=== PATIENT | male | born 1945 | race Caucasian/White ===

== ENCOUNTER 2018-04-17 10:31 | Inpatient (IN) | payer MEDICARE ==
[2018-04-17 11:49] LABS: CK (CPK) 93 U/L (30-200); Lipase 14 U/L (8-78)
[2018-04-17 11:54] LABS: CKMB 1.5 ng/mL (0-6.6); Troponin I Less than 0.010 ng/mL (< 0.028)
[2018-04-17 11:59] LABS: Bilirubin Negative (Negative); Blood, Urine Negative (Negative); Clarity CLEAR (Clear); Glucose, Urine (Dipstick) Negative (Negative); Leukocyte Negative (Negative); Nitrite Negative (Negative); Protein, Urine (Dipstick) Negative (Neg-Trace); Specific Gravity, Urine 1.019 (1.002-1.036); Urobilinogen 0.2 mg/dL (0.2-1.0); pH, Urine 5.5 (5.0-9.0)
[2018-04-17] MEDS ORDERED: Iopamidol 370 76% 50 ML VIAL FS ONE (12:14)
[2018-04-17] MEDS ORDERED: ISOVUE-370 76%-LOCM 1 ML ONE (12:14)
[2018-04-17] MEDS ORDERED: Acetaminophen 325 MG TAB PO PRN (14:56)
[2018-04-17] MEDS ORDERED: Ondansetron HCl/PF 4 MG/2 ML Vial IVP PRN ×2 (14:56→15:37)
[2018-04-17] MEDS ORDERED: Zolpidem Tartrate 5 MG TAB PO PRN (14:56)
[2018-04-17] MEDS ORDERED: Sodium Chloride 0.9% 1,000 ML IV SCH (15:00)
[2018-04-17] MEDS ORDERED: Dextrose 50% Abboject 50 ML SYRINGE SLOW IVP PRN ×2 (15:05→15:37)
[2018-04-17] MEDS ORDERED: Dextrose 5% in Water 1,000 ML IV PRN ×2 (15:05→15:37)
[2018-04-17] MEDS ORDERED: HumaLOG 300 UNITS/3 ML VIAL SC PRN ×2 (15:05→15:37)
--- NOTE | 2018-04-17 15:06 | HP ---
CHIEF COMPLAINT: Abdominal pain, distention, nausea, vomiting. HISTORY OF PRESENT ILLNESS: This is a 72-year-old male who presents with a history of chronic back p ain. Has had multiple back operations, recently switched from [place] to oral morphine for his back pa in. He has not had a bowel movement since last which happened on Thursday. Since then he has had prog ressive development of nausea and became vomiting, still has not had a bowel movement, does not feel like he has a bowel movement, but he notes more abdominal bloating. No significant increase in abdom inal pain, just feels distended. He actually feels better after some IV fluids at the hospital. PAST MEDICAL HISTORY: Includes diabetes mellitus, hypertension, hyperlipidemia, GERD, chronic back p ain. PAST SURGICAL HISTORY: Inguinal hernia repair, multiple back surgeries, knee surgery. ALLERGIES: No known drug allergies. MEDICINES AT HOME: Include Benicar, enalapril, atenolol, metformin, oral morphine. SOCIAL HISTORY: No smoking, alcohol or other drugs. REVIEW OF SYSTEMS: Ten system review of systems otherwise negative described above. PHYSICAL EXAMINATION: VITAL SIGNS: His pulse is 63, blood pressure is 130/78, respirations are 14. He is afebrile. HEENT: Sclerae are anicteric. Oropharynx clear. NECK: No lymphadenopathy. CHEST: Clear. HEART: Regular rate and rhythm. ABDOMEN: Distended. Mild diffusely tender. No guarding or rebound. No abdominal hernia. EXTREMITIES: No ischemia or edema to extremities. IMAGING DATA AND LABORATORY DATA: CT scan shows evidence of small area of dilated intestine. No sig nificant distention. LABORATORY DATA: White blood cell count is 13, hemoglobin 15, platelet count is 294. Sodium 140, po tassium 3.8, creatinine 0.97. Liver function tests and lipase normal. ASSESSMENT: Likely ileus versus partial small-bowel obstruction. I think partial small-bowel obstru ction is less likely given his lack of previous abdominal surgery. This could all be related to func tional issues of the intestine and colon from this up taking pain medicine to morphine. We will admi t to the hospital, give him some magnesium citrate. I do not think he needs NG tube. He feels thor r now. Home tomorrow if he is feeling better. Consult [facility] for medical management.
--- NOTE | 2018-04-17 15:11 | PDOC.EVN ---
Event Note - Event Note Event Note: H&P #[id number]
[2018-04-17] MEDS ORDERED: Morphine 4 MG/ML VIAL SLOW IVP PRN (15:37)
[2018-04-17] MEDS ORDERED: Ondansetron ODT 4 MG TAB PO PRN (15:37)
[2018-04-17] MEDS ORDERED: Promethazine HCl 25 MG/ML VIAL IM PRN (15:37)
[2018-04-17] MEDS ORDERED: Acetaminophen 1,000 MG in Premix Bag 1 BAG IVPB PRN (15:37)
--- NOTE | 2018-04-17 15:45 | CT ---
CT ABDOMEN WITH CONTRAST CT PELVIS WITH CONTRAST: DATE: 04/17/18 HISTORY: 72-year-old male with nausea, emesis, and generalized abdominal pain. COMPARISON: 09/10/16. TECHNIQUE: IV injection of iodinated contrast media: 100 mL Isovue-370. Oral contrast media: PO Isovue. FINDINGS: Pulmonary scar a base of right middle lobe, unchanged. Small pulmonary densities at anterolateral bas e of left lower lobe demonstrated previously, has resolved. No pneumoperitoneum. Metallic hardware in upper sacrum and multiple levels in lumbar spine, again dem onstrated. No hydronephrosis, abdominal aortic aneurysm, adrenal nodule, acute pancreatitis, pancreat ic mass, or splenomegaly. Normal liver. Previously, there were fluid-filled dilated small bowel loops in the left upper quadrant. Currently, there are oral contrast-filled jejunal loops at midline and o n the right and left, in the upper abdomen, with caliber up to 3.5 cm, mildly dilated. Distal to this , there are nondilated small bowel loops. There is a transition zone in the caliber of the small inte andrew from dilated jejunum filled with oral contrast material to nondilated small bowel loop without oral contrast material, in the left mid abdomen (coronal image 63 of 189, series 601; axial images 46 and 47 of 100, series 2). It is uncertain whether or not this is a low grade partial small bowel obs truction or not. No signs of acute colonic diverticulitis. No pneumoperitoneum. Fluid within the lume n of the ascending colon and proximal transverse colon. Normal appendix in the right upper quadrant e xtending towards Morison's pouch. No abdominal aortic aneurysm. No retroperitoneal hematoma. No ascit es. Distended but otherwise normal urinary bladder. No pleural effusion. IMPRESSION: 1. Mildly dilated proximal small bowel (jejunum). Uncertain whether or not this represents a low gra de partial small bowel obstruction. 2. Postsurgical changes in the lumbar spine and lumbosacral junction. JNR POS: [facility]
[2018-04-17] MEDS ORDERED: Magnesium Citrate 300 ML BOT PO SCH (16:00)
[2018-04-17] MEDS: Sodium Chloride 0.9% 1,000 ML IV SCH ×2 (16:05→20:36)
[2018-04-17 16:10] VITALS: BMI 29.1
[2018-04-17] MEDS: Morphine 4 MG/ML VIAL SLOW IVP PRN (17:25)
[2018-04-17] MEDS ORDERED: Milk Of Magnesia 30 ML UDCUP PO SCH (17:30)
--- NOTE | 2018-04-17 18:22 | HP ---
DATE OF ADMISSION: 04/17/2018 CHIEF COMPLAINT: Abdominal pain. HISTORY OF PRESENT ILLNESS: This is a 72-year-old male being admitted to the Internal Medicine team after having proper evaluation by ER as well as General Surgery. The patient apparently presented fo r abdominal distention, abdominal pain. Of note, the patient has been taking narcotic pain medicatio ns in the past 2 years due to back pain. 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 nonnarcotic pain medication regimen was attempted and failed and he was switched over to [place]. Again, of note, he was recently switched to oral morphine that he was taking twice a day. Th e patient prior to evaluation by Internal Medicine was seen by ER. CT scan was done noted to have a possible small-bowel obstruction, evaluated by General Surgery as well noted to have a slow bowels; h owever NG tube not place at this point in time given that the patient is still passing gas and abdome n is soft. The patient told me that he is passing flatus and pass gas this morning and that his hema l movement was earlier this morning; however, had told General Surgery that he has not had a bowel mo vement since Thursday. Otherwise, the patient denies any other complaints. No associated or aggravati ng factors. No other associated symptoms. States that this is the first time that he experiences. ALLERGIES: No known drug allergies. HOME MEDICATIONS: [place], Lortab, metformin, Flagyl, Zofran, Tylenol, enalapril, magnesium, Glucotrol , Benicar and Cipro. Two antibiotics were recently started and he also has completed the course. PAST MEDICAL HISTORY: Positive for back pain, hypertension, hyperlipidemia. FAMILY HISTORY: The patient states he is not aware of any family history. REVIEW OF SYSTEMS: All systems reviewed. Pertinent positives in the HPI, otherwise negative. PHYSICAL EXAMINATION: VITAL SIGNS: Blood pressure is 118/88, respiratory rate of 18, temperature of 98, pulse ox 99% on ro om air, heart rate of 76. GENERAL: The patient is lying in bed comfortably, in no acute distress. NECK: No lymphadenopathy. HEENT: Normocephalic, atraumatic. Pupils are equal, round, react to light and accommodation. CARDIOVASCULAR: Regular rate and rhythm. S1 and S2. No murmurs, rubs or gallops appreciated. PULMONARY: Aerating well. No increase in AP diameter. Clear to auscultation bilaterally. No rales , wheezing or rhonchi noted. ABDOMEN: Positive bowel sounds, soft, nontender, no rebound or guarding noted, abdominal bowel sound s appreciated, high pitch sounds noted. EXTREMITIES: 2+ peripheral pulses in all extremities. No cyanosis, clubbing or edema noted. NEUROLOGIC: Cranial nerves II-XII intact. No loss of motor or sensory function. SKIN: Normal turgor. No rash noted. LABORATORY DATA: CBC within normal limits. BMP within normal limits. UA within normal limits. ASSESSMENT: 1. Small bowel movement/partial small bowel movement. 2. Diabetes mellitus, type 2. 3. Hypertension. 4. Hyperlipidemia. PLAN: Admit to medical floor. Surgical evaluation completed. We will give the patient mag citrate. Repeat KUB in the morning. We will start the patient on low dose sliding scale. Continue glipizid e, but hold metformin for now. Continue home blood pressure medications. P.r.n. for pain meds. P.r .n. for fevers and nausea as well. GI and DVT prophylaxis. The patient wishes to remain a FULL CODE . Case and plan discussed with the patient and who was at bedside at length. They understand a nd agree with this plan.
[2018-04-17] MEDS: Atenolol 50 MG TAB PO SCH (20:34)
[2018-04-17] MEDS ORDERED: Enoxaparin Sodium 40 MG/0.4 ML SYRINGE SC SCH (21:00)
[2018-04-18] MEDS: Sodium Chloride 0.9% 1,000 ML IV SCH ×2 (02:25→10:15)
[2018-04-18] MEDS: Morphine 4 MG/ML VIAL SLOW IVP PRN ×3 (02:26→14:03)
[2018-04-18 05:35] LABS: #Eosinphils 0.3 thou/uL (0.0-0.7); #Lymphocytes 1.9 thou/uL (1.20-3.40); #Monocytes 0.7 thou/uL (0.11-0.59); #Neutrophils 3.9 thou/uL (1.40-6.50); %Basophils 0.1 % (0.0-1.0); %Eosinophils 4.3 % (0.0-10.0); %Lymphocytes 27.8 % (21.0-51.0); %Monocytes 10.3 % (0.0-10.0); %Neutrophils 57.5 % (42.0-75.0); Hemoglobin 12.2 g/dL (14.0-18.0); Mean Corpuscular HGB CONC 33.1 g/dL (32.0-36.0); Mean Corpuscular Hemoglobin 31.1 pg (27.0-31.0); Mean Corpuscular Volume 93.8 fl (80.0-94.0); Mean Platelet Volume 6.3 fL (7.4-10.4); Platelet Count 215 thou/uL (130-400); RBC Distribution Width 11.6 % (11.5-14.5); Red Blood Cell (RBC) Count 3.94 mill/uL (4.70-6.10); White Blood Cell (WBC) Count 6.9 thou/uL (4.8-10.8)
[2018-04-18 05:46] LABS: Anion Gap 6 mmol/L (10-20); BUN (Urea Nitrogen) 9 mg/dL (8.4-25.7); Calc. Creatinine Clearance 119 mL/min (70-130); Calcium 8.3 mg/dL (7.8-10.44); Carbon Dioxide 31 mmol/L (23-31); Chloride 108 mmol/L (98-107); Estimated GFR-MDRD Greater than 90; Glucose 97 mg/dL (83-110); Potassium 3.9 mmol/L (3.5-5.1); Sodium 141 mmol/L (136-145)
[2018-04-18] MEDS ORDERED: glipiZIDE 10 MG TAB PO SCH (07:30)
[2018-04-18] MEDS ORDERED: Hydrochlorothiazide 25 MG TAB PO SCH (09:00)
[2018-04-18] MEDS ORDERED: Non-Formulary Item 1 EACH (Olmesartan/Hydrochlorothiazide [Benicar Hct] 1 TABLET) PO SCH (09:00)
[2018-04-18] MEDS ORDERED: Pantoprazole 40 MG VIAL IVP SCH (09:00)
[2018-04-18] MEDS ORDERED: Enoxaparin Sodium 40 MG/0.4 ML SYRINGE SC SCH (09:00)
--- NOTE | 2018-04-18 09:04 | RAD ---
KUB: Date: 04/18/18 HISTORY: Abdominal pain, small bowel obstruction. COMPARISON: Prior day's CT study. FINDINGS: The bowel gas pattern appears nonobstructive; however, this may be related to the fact that some of t he small bowel loops may be fluid-filled given the appearance on the previous CT. The contrast from t he previous CT has now passed entirely into the colon. Extensive postoperative changes of the spine a re noted. IMPRESSION: Paucity of air seen within small bowel. I do not see any air-filled dilated small bowel loops. It cou ld be that some of the small bowel loops are fluid-filled and dilated, but all of the oral contrast f rom the previous CT examination has passed into the colon. POS: [facility]
[2018-04-18] MEDS: Atenolol 50 MG TAB PO SCH (10:08)
--- NOTE | 2018-04-18 10:29 | PDOC.PN ---
- Subjective Encounter Start Date: 04/18/18 Encounter Start Time: 10:28 Patient seen and examined, states he has had several bowel movements which are liquid and pasty in nature, states that he still has abdominal pain and has also noted some nausea. Patient states he has not had any vomitting, at bedside, all questions answered. - Objective Vital Signs & Weight: Vital Signs (12 hours) Temp Pulse Resp BP BP Pulse Ox 04/18/18 10:08 58 L 125/79 04/18/18 08:00 98.0 F 58 L 18 125/79 93 L 04/18/18 06:02 98.2 F 58 L 18 106/65 94 L I&O: 04/17/18 04/18/18 04/19/18 06:59 06:59 06:59 Intake Total 1860 Balance 1860 Result Diagrams: 04/18/18 05:08 04/18/18 05:08 Additional Labs: Accuchecks 04/18/18 04/17/18 04/17/18 06:03 20:33 16:28 POC Glucose 95 117 H 94 Phys Exam - Physical Examination Constitutional: NAD HEENT: PERRLA, moist MMs, sclera anicteric Neck: no nodes, no JVD, supple, full ROM Respiratory: no wheezing, no rales, no rhonchi Cardiovascular: RRR, no significant murmur, no rub Gastrointestinal: soft, non-tender, no distention tympanic bowel sounds Musculoskeletal: no edema, pulses present Neurological: non-focal, normal sensation, moves all 4 limbs Psychiatric: normal affect, A&O x 3 Skin: no rash, normal turgor Dx/Plan (1) SBO (small bowel obstruction) Code(s): K56.609 - UNSP INTESTNL OBST, UNSP TO PARTIAL VERSUS COMPLETE OBST Status: Acute (2) Hypertension Code(s): I10 - ESSENTIAL (PRIMARY) HYPERTENSION Status: Acute (3) DM type 2 (diabetes mellitus, type 2) Status: Chronic (4) Dyslipidemia Code(s): E78.5 - HYPERLIPIDEMIA, UNSPECIFIED Status: Chronic - Plan * advance diet today to diabetic diet * will monitor for now as patient's BMs are abnormal * labs in AM * repeat KUB as well * surgery following * case and plan d/w patient and at length, they udnerstand and agree with this plan
--- NOTE | 2018-04-18 14:08 | DIS ---
DATE OF ADMISSION: 04/17/2018 DATE OF DISCHARGE: 04/18/2018 ADMISSION DIAGNOSES: Hypertension; coronary artery disease; chronic back pain; gastrointestinal refl ux disease; diabetes mellitus, type 2; functional ileus of intestine secondary to pain medicine. DISCHARGE DIAGNOSES: Hypertension; coronary artery disease; chronic back pain; gastrointestinal refl ux disease; diabetes mellitus, type 2; functional ileus of intestine secondary to pain medicine. PROCEDURES: None. CONDITION AT DISCHARGE: Improved. STAFF: Dr. Jose Hanson. HOSPITAL COURSE: The patient was admitted with nausea, vomiting, abdominal distention. A CT scan sh owed no significant obstruction. He had just started some morphine late last week when symptoms bega n, not on any stool softeners. On the day of discharge, he is afebrile. Vital signs are stable. Hi s abdomen is soft, nontender with active bowel sounds. He has tolerated a full liquid diet. He has had multiple bowel movements since given milk of magnesia. White cell count is normal, hemoglobin is slightly low at 12.2, creatinine 0.72. ASSESSMENT: 1. Functional ileus, resolved. 2. History of chronic pain. PLAN: Discharged to home. We will make sure he is up-to-date on colonoscopies.
[2018-04-18 15:47] VITALS: BP 124/79; TEMP 98.2
[2018-04-18] MEDS ORDERED: Morphine ER 30 MG TAB PO SCH (21:00)
[2018-04-19] MEDS ORDERED: Amlodipine 5 MG TAB PO SCH (09:00)
== END 2018-04-18 15:44 | disposition home or self-care (01) | DRG 390 ==
LOC: ERS 10:31 → T4-B 15:17
PROVIDERS: ADMIT Hospitalist; ATTEND Hospitalist
DX: K56.7 Ileus, unspecified (principal); I10 Essential (primary) hypertension; E11.9 Type 2 diabetes mellitus without complications; E78.5 Hyperlipidemia, unspecified; G89.29 Other chronic pain; M54.9 Dorsalgia, unspecified; K21.9 Gastro-esophageal reflux disease without esophagitis; I25.10 Atherosclerotic heart disease of native coronary artery without angina pectoris; T40.2X5A Adverse effect of other opioids, initial encounter
CPT/HCPCS: 36415; 36416; 74018; 74177; 80048; 81003; 82550; 82553; 83605; 83690; 84484; 85025; 93005; 96360; 96361; C9113; J2270

== ENCOUNTER 2018-05-01 21:14 | Observation (INO) | payer MEDICARE ==
[~2018-05-01 21:14] MED LIST: ISOVUE-370 76%-LOCM 1 ML ONE
[2018-05-01] MEDS ORDERED: Naloxone HCl 0.4 mg/ml Vial ONE (21:30)
[2018-05-01 21:31] LABS: #Lymphocytes 0.5 thou/uL (1.20-3.40); #Monocytes 0.5 thou/uL (0.11-0.59); #Neutrophils 6.7 thou/uL (1.40-6.50); %Basophils 0.6 % (0.0-1.0); %Eosinophils 0.2 % (0.0-10.0); %Lymphocytes 5.8 % (21.0-51.0); %Monocytes 6.2 % (0.0-10.0); %Neutrophils 87.2 % (42.0-75.0); Hemoglobin 13.1 g/dL (14.0-18.0); Mean Corpuscular HGB CONC 34.2 g/dL (32.0-36.0); Mean Corpuscular Hemoglobin 31.6 pg (27.0-31.0); Mean Corpuscular Volume 92.4 fl (80.0-94.0); Mean Platelet Volume 5.9 fL (7.4-10.4); Platelet Count 186 thou/uL (130-400); RBC Distribution Width 11.8 % (11.5-14.5); Red Blood Cell (RBC) Count 4.16 mill/uL (4.70-6.10); White Blood Cell (WBC) Count 7.7 thou/uL (4.8-10.8)
[2018-05-01 21:36] LABS: INR-International Normal Ratio 1.1; PTT 31.8 SEC (22.9-36.1); Prothrombin Time 14.4 SEC (12.0-14.7)
[2018-05-01 21:45] LABS: ALT (SGPT) 64 U/L (8-55); AST (SGOT) 30 U/L (5-34); Albumin 3.6 g/dL (3.4-4.8); Alkaline Phosphatase 83 U/L (40-150); Anion Gap 11 mmol/L (10-20); BUN (Urea Nitrogen) 14 mg/dL (8.4-25.7); Bilirubin, Total 0.5 mg/dL (0.2-1.2); CK (CPK) 27 U/L (30-200); Calc. Creatinine Clearance 0 mL/min (70-130); Calcium 8.6 mg/dL (7.8-10.44); Carbon Dioxide 27 mmol/L (23-31); Chloride 102 mmol/L (98-107); Estimated GFR-MDRD Greater than 90; Globulin 2.9 g/dL (2.4-3.5); Glucose 160 mg/dL (83-110); Potassium 3.5 mmol/L (3.5-5.1); Protein, Total 6.5 g/dL (5.8-8.1); Sodium 136 mmol/L (136-145)
[2018-05-01 21:48] LABS: CKMB 0.2 ng/mL (0-6.6); Troponin I Less than 0.010 ng/mL (< 0.028)
--- NOTE | 2018-05-01 21:48 | CT ---
CT HEAD WITHOUT CONTRAST: 05/01/18 Multiple axial tomograms obtained through the head without IV enhancement. INDICATIONS: Stroke protocol. Weakness in upper extremity, more so on the right with mental status change. No comparison studies. Mild cortical atrophy. Ventricles have normal size and position. No evidence of hemorrhage. No mass e ffect seen in either cerebral hemisphere. At the base of the brain, just to the right of the cavernou s sinus is a soft tissue prominence measuring approximately 1.3 cm. Isodense mass at this location ca nnot be excluded. Suggest this be evaluated with elective MRI. The sinuses and mastoids are clear. IMPRESSION: 1. No evidence of acute infarct. No evidence of hemorrhage. 2. Questioned isodense mass adjacent to the right cavernous sinus extending into the right middl e temporal fossa. Recommend further evaluation with elective MRI. Findings relayed to Dr. Petersen at 9:37 p.m. POS: [facility]
--- NOTE | 2018-05-01 22:14 | CT ---
CT ANGIO HEAD WITH CONTRAST: 05/01/18 Multiple axial tomograms obtained through the head following a cerebral angio protocol with multiplan ar reconstruction and 3D postprocessing. INDICATIONS: Stroke protocol with right side weakness. FINDINGS: The intracranial internal carotid arteries are patent and appears symmetric. The questioned soft tiss ue prominence to the right of the right cavernous sinus on the noncontrast study represents a tortuou s cavernous internal carotid artery. Middle cerebral arteries appear normal and symmetric. Anterior cerebral arteries are patent. There is a single anterior cerebral artery trunk beyond the anterior communicator. The basilar artery is patent. Posterior cerebral arteries are patent. There is a communication to the right posterior cerebra. IMPRESSION: Unremarkable cerebral angio study. CT ANGIO NECK: Multiple axial tomograms obtained through the neck following angio protocol with multiplanar reconstr uctions and 3D postprocessing. INDICATIONS: Stroke protocol. FINDINGS: There is no evidence of stenosis at the origin of the arch vessels. Common carotid arteries appear un remarkable bilaterally. Calcified plaque is seen at both carotid bifurcations and extending into both internal carotid arteri es; however, there is no evidence of internal carotid artery stenosis on either side. The vertebral arteries are patent and symmetric. Images through the lung apices reveals a 1.3 cm nodule in the right lung apex. Further evaluation wi th elective chest CT is recommended. Thyroid is enlarged and heterogeneous. No other soft tissue abnormality. Prominent degenerative changes in the cervical spine especially pronounced at C5-6 with disc space na rrowing and posterior hypertrophic changes encroaching into the spinal canal. IMPRESSION: 1. Mild atherosclerotic changes at both carotid bulbs; however, no evidence of internal carotid artery stenosis. 2. Nodule in the right lung apex. Further evaluation with noncontrast chest CT recommended elect ively. 3. Enlarged heterogeneous thyroid gland. Code LN POS: [facility]
[2018-05-01 22:26] LABS: Bilirubin Negative (Negative); Blood, Urine Negative (Negative); Clarity CLEAR (Clear); Glucose, Urine (Dipstick) Negative (Negative); Leukocyte Negative (Negative); Nitrite Negative (Negative); Protein, Urine (Dipstick) Trace mg/dL (Neg-Trace)
[2018-05-01 22:29] LABS: Specific Gravity, Urine 1.043 (1.002-1.036)
--- NOTE | 2018-05-01 22:56 | RAD ---
PORTABLE CHEST: 05/01/18 HISTORY: Weakness. The lung ramos appear clear. No infiltrate or vascular congestion. Heart size is upper normal. IMPRESSION: No acute lung process. POS: [facility]
--- NOTE | 2018-05-02 00:19 | PDOC.FPRHP ---
- History of Present Illness Chief Complaint: AMS History of Present Illness: 72 y/o M with PMHx of chronic back pain, HTN, HLD, DM2 who presents with AMS. The history was obtained by his due to his mental status changes. She reports that around 5pm he was complaining of really bad back pain and asked for his pain medication. She asked him if he had already taken his norco and he said that a little bit before he had taken 1.5 tablets of the norco. She is unsure at that point whether he went to get more of the norco or other pain medications or not. When he woke up later, he was not acting like himself. He was really out of it and weak. He was unable to get to the bathroom by himself. He couldn't walk at all. She took his temperature because he was shivering and it was 100.3. She also checked his blood sugar and it was 170. He follows with pain management for his chronic back pain, he has seen both Dr. Covington and Dr. Correa. They have been trying to wean him off of opioids recently. He had been on Hysingla 60mg, but then they changed it to Morphine ER 30mg BID when he got an SBO, and then more recently on April 27 he was decreased to [place] 10-325mg 1 tab q8h. He has been in a lot of pain since this decrease and has an appt coming up this next week with Dr. Correa. His reports that they still have extras of both the Morphine and Hysingla at the house. ED Course: The patient was evaluated in the ED by Dr. Petersen and was given Narcan 0.4mg IV. The patient's AMS resolved after this dose. - Allergies/Adverse Reactions Allergies Allergy/AdvReac Type Severity Reaction Status Date / Time No Known Allergies Allergy Verified 01/27/15 15:11 - Home Medications Medication Instructions Recorded Confirmed Type Atenolol 50 mg PO BID 09/21/14 05/02/18 History Esomeprazole Magnesium [NexIUM] 40 mg PO DAILY 09/21/14 05/02/18 History metFORMIN HCl 500 mg PO BID 09/21/14 05/02/18 History Olmesartan Medoxomil [Benicar] 25 mg PO DAILY 04/17/18 05/02/18 History Amlodipine [Norvasc] 5 mg PO DAILY 04/18/18 05/02/18 History HYDROcodone Bit/APAP 10/325 [[place] 1 tab PO Q8HR PRN 05/02/18 05/02/18 History 10/325] Pitavastatin Calcium [Livalo] 1 mg PO HS 05/02/18 05/02/18 History Tamsulosin HCl [Flomax] 0.4 mg PO DAILY 05/02/18 05/02/18 History - History PMHx: 1. HTN 2. HLD 3. DM2 4. Chronic Back Pain 5. GERD 6. BPH PSHx: 1. Inguinal Hernia Repair 2. Multiple Back sx 3. Knee sx 4. Neck sx FHx: DM2 Social: The patient is . Denies EtOH, drug, or tobacco use. - Review of Systems ROS unobtainable: due to mental status - Vital signs BP: 112/77 HR: 74 RR: 13 Tmax: 102.8 Pox: 95% on RA Wt: 93.8kg - Physical Exam -Constitutional: Drowsy, oriented x3, fell asleep between questions, shivering on exam, diaphoretic -HEENT: pinpoint pupils, EOMI, MMM, good dentition, oropharynx clear, conjunctiva clear Neck: supple, no LAD Heart: RRR, normal S1/S2, no murmurs/rubs/gallops, pulses present, no edema Lungs: CTAB, no respiratory distress, good air movement, no rales/rhonchi, no wheezing, no retractions -Abdomen: soft, mildly distended, mildly tender to palpation diffusely, normoactive bowel sounds, no guarding or rebound Musculoskeletal: normal structure, normal tone -Neurological: GCS 13, no focal deficits, CN II-XII intact Skin: no rash/lesions, good turgor, capillary refill <2 seconds Heme/Lymphatic: no unusual bruising or bleeding, no purpura -Psychiatric: poor recent memory and recall. FMR H&P: Results - Labs Result Diagrams: 05/01/18 21:26 05/01/18 21:26 Lab results: WBC 7.7 thou/uL (4.8-10.8) 05/01/18 21:26 Hgb 13.1 g/dL (14.0-18.0) L 05/01/18 21:26 Hct 38.4 % (42.0-52.0) L 05/01/18 21:26 MCV 92.4 fl (80.0-94.0) 05/01/18 21:26 Plt Count 186 thou/uL (130-400) 05/01/18 21:26 Neutrophils % 87.2 % (42.0-75.0) H 05/01/18 21:26 Sodium 136 mmol/L (136-145) 05/01/18 21:26 Potassium 3.5 mmol/L (3.5-5.1) 05/01/18 21:26 Chloride 102 mmol/L (98-107) 05/01/18 21:26 Carbon Dioxide 27 mmol/L (23-31) 05/01/18 21:26 BUN 14 mg/dL (8.4-25.7) 05/01/18 21:26 Creatinine 0.83 mg/dL (0.6-1.3) 05/01/18 21:26 Glucose 160 mg/dL (83-110) H 05/01/18 21:26 Calcium 8.6 mg/dL (7.8-10.44) 05/01/18 21:26 Total Bilirubin 0.5 mg/dL (0.2-1.2) 05/01/18 21:26 AST 30 U/L (5-34) 05/01/18 21:26 ALT 64 U/L (8-55) H 05/01/18 21:26 Alkaline Phosphatase 83 U/L (40-150) 05/01/18 21:26 Creatine Kinase 27 U/L (30-200) L 05/01/18 21:26 CK-MB (CK-2) 0.2 ng/mL (0-6.6) 05/01/18 21:26 Serum Total Protein 6.5 g/dL (5.8-8.1) 05/01/18 21:26 Albumin 3.6 g/dL (3.4-4.8) 05/01/18 21:26 Urine Ketones Negative mg/dL (Negative) 05/01/18 22:21 Urine Blood Negative (Negative) 05/01/18 22:21 Urine Nitrite Negative (Negative) 05/01/18 22:21 Ur Leukocyte Esterase Negative (Negative) 05/01/18 22:21 - Radiology Interpretation CT scan - head Status: report reviewed by me Additional comment: No hemorrhage or infarct. Questioned mass in R cavernous sinus - recommend MRI to further evaluate CTA: no acute process. Nodule in R lung apex. Heterogenous enlarged thyroid Chest x-ray Status: report reviewed by me Additional comment: No acute process FMR H&P: A/P - Problem List (1) Toxic encephalopathy Current Visit: Yes Status: Acute Code(s): G92 - TOXIC ENCEPHALOPATHY (2) Opioid overdose Current Visit: Yes Status: Acute Code(s): T40.2X1A - POISONING BY OTH OPIOIDS, ACCIDENTAL (UNINTENTIONAL), INIT Qualifiers: Encounter type: initial encounter Injury intent: accidental or unintentional Qualified Code(s): T40.2X1A - Poisoning by other opioids, accidental (unintentional), initial encounter (3) HTN (hypertension) Current Visit: No Status: Acute Code(s): I10 - ESSENTIAL (PRIMARY) HYPERTENSION Qualifiers: Hypertension type: essential hypertension Qualified Code(s): I10 - Essential (primary) hypertension (4) Chronic back pain Current Visit: No Status: Chronic Code(s): M54.9 - DORSALGIA, UNSPECIFIED; G89.29 - OTHER CHRONIC PAIN Qualifiers: Back pain location: low back pain Back pain laterality: midline Sciatica presence: unspecified whether sciatica present Qualified Code(s): M54.5 - Low back pain; G89.29 - Other chronic pain; G89.29 - Other chronic pain (5) DM type 2 (diabetes mellitus, type 2) Current Visit: No Status: Chronic Qualifiers: Diabetes mellitus ferry terminal supervisor insulin use: without ferry terminal supervisor use Diabetes mellitus complication status: without complication Qualified Code(s): E11.9 - Type 2 diabetes mellitus without complications (6) Dyslipidemia Current Visit: No Status: Chronic Code(s): E78.5 - HYPERLIPIDEMIA, UNSPECIFIED (7) GERD (gastroesophageal reflux disease) Current Visit: No Status: Chronic Code(s): K21.9 - GASTRO-ESOPHAGEAL REFLUX DISEASE WITHOUT ESOPHAGITIS Qualifiers: Esophagitis presence: without esophagitis Qualified Code(s): K21.9 - Gastro -esophageal reflux disease without esophagitis - Plan Toxic Encephalopathy likely 2/2 Opioid Overdose Patient is a chronic opioid user for his back pain and is being weaned off of opioids right now. He was recently changed from Morphine ER 30mg BID to [place] 10 -325mg 1 tab q8h. It is suspected that he took more than he was supposed to because of his pain. s/p Narcan 0.4mg in the ED. He immediately "perked up". However shortly after became altered again and diaphoretic with nausea, fever, and shivering, he is likely now in withdrawals. COWS score 7. -UDS/SDS -Acetaminophen level -Blood Cx -Urine Cx -Restart norco in the AM pending pt's mental status -NPO due to AMS Chronic Back Pain Patient on [place] chronically for back pain and is s/p 2 lumbar spinal sx. He sees pain management for his back pain. -Holding [place] for now, will restart pending pt's mental status in the AM. Nodule Right Lung [place] Found incidentally. -Recommend non-contrast CT outpatient to f/u Cavernous Sinus Mass on the R Found incidentally. -Recommend outpatient brain MRI to further characterize HTN -holding home meds due to AMS -Hydralazine prn SBP > 180 HLD -Holding home meds due to AMS DM2 -Holding home meds due to AMS -Accuchecks ACHS VTE ppx: SCD's and Lovenox Code Status: Full Disposition/LOS: Obs on medical, length of stay likely less than 48 hours FMR H&P: Upper Level - Pertinent history PCP: CC Patient is a 72yo CM with PMHx of T2DM, HTN and chronic back pain who presents with altered mental status. reports he was out of it and thinks he took too much of his pain meds. Patient is followed by Dr. Correa of pain management who has been trying to wean down his pain medication. He was previously taking hysingla ER 40mg qD but that was not providing enough pain relief so it was increased to hysingla ER 60mg qD. He was then switched to morphine ER 30mg and then recently weaned down to [place] 10/325 1 tab q8H. He was started on the norco regimen on 04/27/18. Patient not able to provide history at this time. reports he has been shivering, febrile to 100.3 at home and nauseous. In the ED, patient was given naloxone and reports perked right up. ED: naloxone 0.4mg IV, Zofran 8mg SL, 1L NS - Pertinent findings T 99.3 BP 112/77 HR 74 RR 13 O2 95% on RA Wt. 94kg General: somnolent HEENT: BL pinpoint pupils Heart: S1 S2, RRR Lungs: CTAB Abd: soft, nt/nd/bs+ Neuro: GCS 13 CT Brain: negative; possible mass adjacent to RT cavernous sinus extending into RT temporal fossa. Recommend MRI outpatient CTA Head/Neck: mild atherosclerotic changes at carotid bulbs; no carotid artery stenosis; RT lung nodule at apex- recommend outpatient noncontrast chest CT CXR: negative - Plan Date/Time: 05/02/18 0018 1. Toxic encephalopathy: patient presents with altered mental status and initial concern for possible CVA. However, imaging studies all negative and history more c/w likely opioid OD. Patient chronic opioid user and followed by Dr. Correa of pain management. Previously on hysingla ER 60mg but is being weaned down and now on norco 10/325 q8H. states that he has leftover pain meds-hysingla and morphine-that he probably took to help control his pain. He was given a dose of narcan 0.4mg IV in the ED and had complete resolution of mental status and states he perked back up and was back to his baseline. On exam, patient with pinpoint pupils, but complaining of some abd discomfort, nausea and diaphoresis. Could now be developing the opioid withdrawal. Check UDS /SDS. Will monitor closely and treat symptomatically. 2. Fever: likely 2/2 #1. UA and CXR negative. WBC normal though inc neutrophils of 87.2%. Obtain blood and urine cxs. Monitor. No abx at this time. 3. Chronic back pain: followed by Dr. Correa of pain management and has a follow-up appt with him on 05/05/18. 4. HTN: hold home Benicar, atenolol and amlodipine as patient is not safe to swallow at this time due to dec arousability. 5. T2DM: hold home metformin. Accuchecks ACHS. 6. HLD: hold home livalo 7. BPH: hold home tamsulosin 8. RT apex lung nodule: outpatient noncontrast CT chest 9. RT cavernous sinus mass: outpatient MRI for further evaluation 10. Diet: NPO 11. PPx: SCDs 12. Code Status: Full I, Roxie Oneill, have evaluated this patient and agree with findings/ plan as outlined by technical support intern resident. Pertinent changes/additions are listed here.
[2018-05-02] MEDS ORDERED: Ondansetron ODT 8 MG TAB ONE (00:57)
[2018-05-02] MEDS ORDERED: Acetaminophen 325 MG Suppository ONE (01:44)
[2018-05-02] MEDS ORDERED: Ondansetron ODT 4 MG TAB PO PRN (02:59)
[2018-05-02] MEDS ORDERED: hydrALAZINE 20 MG/ML VIAL SLOW IVP PRN (02:59)
[2018-05-02] MEDS ORDERED: Dextrose 50% Abboject 50 ML SYRINGE SLOW IVP PRN (02:59)
[2018-05-02] MEDS ORDERED: Ondansetron PF 4 MG/2 ML Vial IVP PRN ×2 (02:59→03:00)
[2018-05-02] MEDS ORDERED: Dextrose 5% in Water 1,000 ML IV PRN (02:59)
[2018-05-02] MEDS ORDERED: Ondansetron ODT 4 MG TAB SL PRN (03:00)
[2018-05-02] MEDS ORDERED: Acetaminophen 325 MG TAB PO PRN (03:00)
[2018-05-02 03:10] VITALS: BMI 29.7
[2018-05-02 03:51] LABS: Amphetamine Not Detected (NotDetected); Barbiturates Screen Not Detected (NotDetected); Benzodiazepine Screen Not Detected (NotDetected); Cocaine Metabolite Screen Not Detected (NotDetected); Medtox Control Line Valid? VALID (VALID); Medtox Reader # READER 1; Methadone Not Detected (NotDetected); Methamphetamine Not Detected (NotDetected); Opiate Screen Detected (NotDetected); Oxycodone Screen Not Detected (NotDetected); Phencyclidine (PCP) Not Detected (NotDetected); THC/Cannabinoid Screen Not Detected (NotDetected); Tricyclic Screen Not Detected (NotDetected)
[2018-05-02 05:39] LABS: #Lymphocytes 0.7 thou/uL (1.20-3.40); #Monocytes 0.9 thou/uL (0.11-0.59); #Neutrophils 6.6 thou/uL (1.40-6.50); %Basophils 0.2 % (0.0-1.0); %Eosinophils 0.1 % (0.0-10.0); %Lymphocytes 8.9 % (21.0-51.0); %Monocytes 11.2 % (0.0-10.0); %Neutrophils 79.6 % (42.0-75.0); Acetaminophen Less than 6.0 mcg/mL (10.0-30.0); Alcohol Less than 10 mg/dL (Less than 10); Hemoglobin 11.9 g/dL (14.0-18.0); Mean Corpuscular HGB CONC 32.8 g/dL (32.0-36.0); Mean Corpuscular Hemoglobin 30.4 pg (27.0-31.0); Mean Corpuscular Volume 92.5 fl (80.0-94.0); Mean Platelet Volume 6.4 fL (7.4-10.4); Platelet Count 186 thou/uL (130-400); RBC Distribution Width 11.7 % (11.5-14.5); Salicylate Less than 8.0 mg/dL (15.0-30.0); White Blood Cell (WBC) Count 8.3 thou/uL (4.8-10.8)
[2018-05-02] MEDS ORDERED: HYDROcodone/Acetaminophen 10/325 mg Tablet PO SCH (08:00)
[2018-05-02] MEDS ORDERED: Enoxaparin Sodium 40 MG/0.4 ML SYRINGE SC SCH (09:00)
[2018-05-02] MEDS ORDERED: Tamsulosin HCl 0.4 MG CAP PO SCH (09:00)
[2018-05-02] MEDS ORDERED: metFORMIN 500 MG TAB PO SCH (09:00)
[2018-05-02] MEDS ORDERED: Amlodipine 5 MG TAB PO SCH (09:00)
[2018-05-02] MEDS ORDERED: Polyethylene Glycol 3350 17 GM Packet PO PRN (10:47)
[2018-05-02] MEDS ORDERED: Milk Of Magnesia 30 ML UDCUP PO PRN (10:47)
[2018-05-02] MEDS ORDERED: Docusate 100 MG CAP PO PRN (10:48)
[2018-05-02 11:27] VITALS: BP 116/54; TEMP 99.4
--- NOTE | 2018-05-03 04:02 | DIS-2 ---
DATE OF ADMISSION: 05/02/2018 DATE OF DISCHARGE: 05/02/2018 RESIDENT: Alessandro Walker M.D. ADMITTING ATTENDING: Cristhian Rob M.D. DISCHARGE ATTENDING: Cristhian Rob M.D. CONSULTATIONS: None. PROCEDURES: Brain CT angiogram [place] shows questioned isodense mass adjacent to the right cavernous sinus, recommend further evaluation with elective MRI. CT angiogram shows nodule in right lung apex, further evaluation with noncontrast CT recommended. PRIMARY DIAGNOSIS: Toxic encephalopathy likely secondary to opioid overdose. SECONDARY DIAGNOSES: Chronic back pain, right lung nodule, cavernous sinus mass, hypertension, hyper lipidemia, type 2 diabetes. DISCHARGE MEDICATIONS: Albuterol, docusate, atenolol, metformin, Nexium, Benicar, amlodipine, hydroc odone 10 mg t.i.d., Flomax, pitavastatin. DISCONTINUED MEDICATIONS: None. HISTORY OF PRESENT ILLNESS AND HOSPITAL COURSE: A 72-year-old patient with past medical history of c hronic back pain, presented with altered mental status. History is obtained from his secondary to mental status changes. She reported that around 5:00 p.m., patient was complaining of worsening o f the back pain and asked her pain medication. He had said that he had already had a little bit befo re, he had taken 1.5 tab of [place]. She is unsure whether or not he went to get any more after that. When he woke up later he was not acting himself. She states he was "out of it and was unable to get to the bathroom by himself." She took his temperature and it was 100.3. She checked his blood suga r and it was 170. The patient follows for pain management with Dr. Covington and Dr. Correa. They h ave been trying to wean him off opiates. He had been on Hysingla 60 mg, but they changed that to mor phine 30 mg extended release b.i.d. when he had a SBO. Then, he was titrated down to [place] 10 mg q.8 hours. He has been in a lot of pain and has an appointment this coming Thursday with Dr. Correa. He reports that he is going to get a lumbar injection at that time. His states that they stil l have extra dose of both morphine and Hysingla at the house. In the ER, the patient was given 0.4 mg of Narcan and his altered mental status resolved after this d ose. Short time later, the patient became diaphoretic and tremulous and with pinpoint pupils and was thought to be entering into opioid withdrawal. The next morning, the patient was A&O x3 with no sym ptoms. He states he was feeling back to his normal self. The patient's O2 sat dipped to the high 80 s overnight and he required 1 liter of oxygen. After a DuoNeb, his oxygen was back to the mid to low 90s. The patient was discharged home and instructed to follow up closely with his PCP as well as [facility] pain management. DISPOSITION: Stable. DISCHARGE INSTRUCTIONS: 1. Location: Home. 2. Diet: Heart healthy. 3. Activity: As tolerated. 4. Followup: Follow up with Dr. Hanson one day, Dr. Correa 2 days, PCP 1 to 2 days. The estephanie ent will need outpatient CT chest without contrast to follow up on right lung nodule. He will also n eed outpatient MRI brain to follow up on right cavernous sinus mass. The patient is aware of these t hings.
[2018-05-03] MEDS ORDERED: Levothyroxine Sodium 50 MCG TAB PO SCH (06:00)
--- NOTE | 2018-06-12 16:59 | EKG ---
Test Reason : Blood Pressure : / mmHG Vent. Rate : 085 BPM Atrial Rate : 085 BPM P-R Int : 198 ms QRS Dur : 102 ms QT Int : 366 ms P-R-T Axes : 000 -24 035 degrees QTc Int : 435 ms Normal sinus rhythm Normal ECG Confirmed by JHOAN JONES MD ([id number]), editor magazine FERNANDO FUENTES ([id number]) on 06/12/2018 4:59:17 PM Referred By: Confirmed By:JHOAN JONES MD
== END 2018-05-02 13:54 | disposition home or self-care (01) ==
LOC: ERS 21:14 → 2NO 05-02 02:46
PROVIDERS: ADMIT Family Medicine; ATTEND Family Medicine
DX: G92 Toxic encephalopathy (principal); M54.9 Dorsalgia, unspecified; I10 Essential (primary) hypertension; E78.5 Hyperlipidemia, unspecified; E11.9 Type 2 diabetes mellitus without complications; R91.1 Solitary pulmonary nodule; K21.9 Gastro-esophageal reflux disease without esophagitis; T40.2X1A Poisoning by other opioids, accidental (unintentional), initial encounter; Z79.899 Other long term (current) drug therapy
CPT/HCPCS: 70450; 70496; 70498; 71045; 80053; 80306; 80307 ×2; 81003; 82550; 82553; 82962 ×2; 84439; 84443; 84484; 85025 ×2; 85610; 85730; 86850; 86900; 86901; 87040; 87086; 93005; 94640; 94760; 96361; 96372; 96374; 99285; G0378; 36415; 36416; J1650; J2310; J7620

== ENCOUNTER 2018-05-28 14:34 | Outpatient (CLI) | payer MEDICARE | END 2018-05-28 14:35 | disposition home or self-care (01) | LOC: BICCT 14:34 | PROVIDERS: ATTEND Nurse Practitioner | DX: G93.9 Disorder of brain, unspecified (principal); R91.1 Solitary pulmonary nodule; G31.9 Degenerative disease of nervous system, unspecified; R91.8 Other nonspecific abnormal finding of lung field | CPT/HCPCS: 70551; 71250 ==

== ENCOUNTER 2018-08-09 18:02 | Emergency (ER) | payer MEDICARE ==
[2018-08-09] MEDS ORDERED: Ondansetron ODT 4 MG TAB ONE (21:04)
== END 2018-08-09 21:43 | disposition home or self-care (01) ==
LOC: ERS 18:02
DX: G89.29 Other chronic pain (principal); M54.5 Low back pain; E11.9 Type 2 diabetes mellitus without complications; I10 Essential (primary) hypertension
CPT/HCPCS: 96372; J2270; Q0162

== ENCOUNTER 2019-02-15 10:08 | Outpatient (CLI) | payer MEDICARE ==
--- NOTE | 2019-02-15 11:29 | CT ---
CONTRAST ENHANCED CT CHEST: HISTORY: History of lumbar spine surgery. History of lung nodules followup. FINDINGS: Contrast-enhanced CT images of the chest re obtained. Images demonstrate small nodular density in the left upper lobe axial image #30. This has not signif icantly changed since the previous exam. There is interval development of a subpleural nodule in the right upper lobe posterior aspect diameter now measuring approximately 5.5 mm. This was not present on the previous exam. Additional lung parenchymal nodular density previously measuring 8.8 mm in the right upper lobe is no longer visible or significantly smaller. Additional numerous patchy airspace opacities seen in the right and left upper lobes. These are slig htly more prominent than on the previous exam. There are also additional areas of airspace opacities multiple areas in the right middle lobe, lingul a, and a lesser degree anterior aspect of the left lower lobe. These areas have developed in the int erim. Coronary artery calcification is seen. No significant evidence of lymphadenopathy is seen. IMPRESSION: Multiple lung parenchymal airspace opacities which have developed since the previous comparison exam. These areas have increased when compared to the previous exam from April of 2018. POS: ANAIS
== END 2019-02-15 10:09 | disposition home or self-care (01) ==
LOC: BICCT 10:08
PROVIDERS: ATTEND Internal Medicine Critical Care Medicine
DX: R91.1 Solitary pulmonary nodule (principal); R91.8 Other nonspecific abnormal finding of lung field
CPT/HCPCS: 71260; 82565; Q9966

== ENCOUNTER 2019-04-14 07:47 | Day surgery (SDC) | payer MEDICARE ==
--- NOTE | 2019-04-14 10:26 | ULT ---
RIGHT UPPER QUADRANT ULTRASOUND: HISTORY: Right upper quadrant pain, concern for cholecystitis. FINDINGS: Correlation is made with the earlier CT scan of the same date. The gallbladder is distended measuring 12.8 mm with a 7 mm shadowing calculus. The gallbladder wall is thickened measuring about 4.7 mm. No pericholecystic fluid is seen. The common duct measures 2 m m in diameter. Pancreas is not well visualized due to overlying bowel gas. No right-sided hydroneph rosis is seen. No free fluid is noted in the Morison's pouch. IMPRESSION: Cholelithiasis with hydrops of the gallbladder, gallbladder wall thickening, and common bile duct dil atation. RECOMMENDATION: If there is clinical concern for acute cholecystitis, further evaluation with a HIDA scan would be he lpful. POS: TPC
[2019-04-14] MEDS ORDERED: Fentanyl 100 MCG/2 ML VIAL ONE ×5 (12:06→15:28)
[2019-04-14] MEDS ORDERED: cefOXitin 2 GM VIAL ONE (12:52)
[2019-04-14] MEDS ORDERED: Sodium Chloride 0.9% 100 ML ONE (12:52)
[2019-04-14] MEDS ORDERED: Bupivacaine/Epinephrine 0.25% 30 ML VIAL ONE (13:00)
[2019-04-14] MEDS ORDERED: Iothalamate Meglumine 60% 50 ML VIAL FS ONE (13:00)
[2019-04-14] MEDS ORDERED: Lidocaine 2% Jelly 5 ML TUBE ONE (13:05)
--- NOTE | 2019-04-14 13:24 | HP ---
HISTORY OF PRESENT ILLNESS: Mr. Hale is a 73-year-old man with history of chronic back pain. The patient was awoken approximately 0100 hours by what he describes as 10/10 sharp epigastric to right upper quadrant abdominal pain, which radiated to his back. The pain was associated with some nausea, but no emesis. He has never experienced similar pain in the past. He denies any fevers or chills. Pain fails to resolve, as a result, he was seen in [facility]. CT scan of the abdomen and pelvis was obtained suggestive of acute cholecystitis , which the patient was transferred to [facility] in [place], [place]. Additional workup included abdominal ultrasound following which the patient was referred to General Surgery for further care. At time of my evaluation, he reports pain now at 6/10. He denies any nausea or vomiting. He denies any change in his bowel habits. PAST MEDICAL HISTORY: Pertinent for type 2 diabetes mellitus, essential hypertension, chronic back pain, gastroesophageal reflux disease, and degenerative arthritic disease. PAST SURGICAL HISTORY: Pertinent for right intra-ocular lens implant a week ago. Other pertinent surgical history includes multilevel spinal operations including cervical, thoracic and lumbar spine. He is also status post left inguinal herniorrhaphy many years ago. SOCIAL HISTORY: He is , lives at home with his . He denies any cigarette smoking, ethanol, or illicit drug abuse. FAMILY HISTORY: Noncontributory for this patient's age. PRE-HOSPITAL MEDICATIONS: Include: 1. Metformin 1000 mg p.o. b.i.d. 2. Atenolol 50 mg p.o. b.i.d. 3. Amlodipine 5 mg p.o. daily. 4. Benicar 40 mg p.o. daily. 5. Atorvastatin 40 mg p.o. daily. 6. Tamsulosin 0.4 mg p.o. daily. 7. Prilosec 40 mg p.o. daily. 8. [place] 10/325 p.o. q.4 hours p.r.n. pain. ALLERGIES: THE PATIENT DENIES ANY KNOWN DRUG ALLERGIES. REVIEW OF SYSTEMS: Ten-point review of systems essentially unremarkable except as stated in past medical history and chief complaint. PHYSICAL EXAMINATION: GENERAL: This reveals a 73-year-old normally developed man, who is otherwise coherent, interactive, and appears stated age. The patient is alert and oriented x3, appears to be in no acute distress at time of my evaluation. VITAL SIGNS: Currently include blood pressure 141/81, pulse is 60, respiratory rate is 17, temperature is 97.9 degrees Fahrenheit, and oxygen saturation is 98% on room air. HEENT: Reveals normocephalic and atraumatic. Pupils are equal, round, and reactive to light and accommodation. Extraocular muscles are intact bilaterally. He has no scleral icterus present. Oral mucosa is pink and moist. No lesions are noted. NECK: Supple. No palpable lymphadenopathy or thyromegaly present. HEART: Reveals regular rate and rhythm. No murmurs or gallops auscultated. LUNGS: Clear to auscultation bilaterally. Breathing, regular and nonlabored. ABDOMEN: Soft and obese. He has right upper quadrant tenderness to palpation. He has a positive Travis sign. Liver and spleen are nonpalpable below costal margin. EXTREMITIES: Reveals 2+ radial and pedal pulses bilaterally. No ankle edema is present. NEUROLOGIC: Reveals no focal deficits present. LABORATORY FINDINGS: Today include a CBC with 8500 white blood cells, hemoglobin and hematocrit of 13.9 and 41.7 respectively. Platelet count is 252,000. Metabolic profile; sodium is 141, potassium is 3.9, chloride is 102, bicarb is 30, BUN 23, creatinine is 1.02, glucose is 121. AST and ALT normal at 14 and 18 respectively. Total bilirubin is also normal at 0.4, alkaline phosphatase is normal at 64. Serum lipase is normal at 33 units/L. I have personally reviewed the abdominal ultrasound, which is remarkable for distended gallbladder with 7 mm intraluminal gallstone. There is gallbladder wall thickening present. Common bile duct is normal in diameter at less than 3 mm. IMPRESSION: Acute cholecystitis with cholelithiasis. PLAN: Laparoscopic cholecystectomy. Above findings and plan have been discussed with the patient and his at bedside. I have advised the patient of the risks and benefits of proposed surgery to include, but not limited to bleeding, infection, injury to bile duct or surrounding structures. The patient and his have both indicated understanding of information I have given them today. I have answered his questions. The patient has granted consent for this admission and surgical intervention. Job ID: [id number] [facility]
[2019-04-14] MEDS ORDERED: Lidocaine 1% PF 5 ML VIAL ONE (16:49)
[2019-04-14] MEDS ORDERED: PROPOFOL 200 MG/20 ML VIAL ONE (16:49)
[2019-04-14] MEDS ORDERED: ePHEDrine 50 MG/ML VIAL ONE (16:49)
[2019-04-14] MEDS ORDERED: Ketorolac Tromethamine 30 MG/ML VIAL ONE (16:49)
[2019-04-14] MEDS ORDERED: Ondansetron PF 4 MG/2 ML Vial ONE (16:49)
[2019-04-14] MEDS ORDERED: Glycopyrrolate 0.2 MG/ML 5 ML SYRINGE ONE (16:49)
[2019-04-14] MEDS ORDERED: Rocuronium Bromide 10 MG/ML (10ML VIAL) ONE (16:49)
[2019-04-14] MEDS ORDERED: HYDROcodone/Acetaminophen 10/325 mg Tablet ONE (17:11)
--- NOTE | 2019-04-14 21:42 | OP ---
DATE OF PROCEDURE: 04/14/2019 PREOPERATIVE DIAGNOSIS: Acute cholecystitis with cholelithiasis. POSTOPERATIVE DIAGNOSIS: Acute cholecystitis with cholelithiasis. OPERATION PERFORMED: Laparoscopic cholecystectomy. ANESTHESIA: General endotracheal. ESTIMATED BLOOD LOSS: 25 mL. FLUIDS GIVEN: 800 mL crystalloids. COUNTS: Sponge and instrument counts were verified as correct x2. COMPLICATIONS: None apparent at the time of operation. INDICATIONS FOR OPERATION: A 73-year-old man presented with insidious onset epigastric right upper quadrant abdominal pain, which radiated to his back. Clinical radiographic examination was consistent with acute cholecystitis with cholelithiasis, for which the patient was brought to the operating room for cholecystectomy. Findings are consistent with a markedly distended gallbladder in the usual anatomic location, partially encased by omental adhesions. DESCRIPTION OF PROCEDURE: Informed consent obtained from the patient. He was brought to the operating room and placed in supine position. Following general anesthesia, abdomen was sterilely prepped and draped in usual fashion. Skin below the umbilicus was infiltrated with 0.25% Marcaine with epinephrine. A small curvilinear infraumbilical incision was made using 11 scalpel. Umbilical stalk grasped with Willie and elevated. Veress needle was inserted through the incision and placed in the peritoneal cavity, through which the abdomen was insufflated with 3.5 L of CO2 gas. Intra-abdominal pressure was noted at zero mmHg. Following abdominal insufflation, Veress needle was removed and a 5 mm trocar introduced using a Visiport under laparoscopy. Laparoscopy confirmed proper placement of the port. No injuries to underlying structures. Additional laparoscopy revealed gallbladder in the usual anatomic location, partially encased by omental adhesions. Under direct laparoscopy, a 12 mm epigastric and two 5 mm right lateral subcostal ports were placed after the overlying skin was infiltrated with 0.25% Marcaine with epinephrine and appropriate incision was made. The patient was placed in a reverse Trendelenburg position, rotated to his left. I introduced a [place] dissector with cautery using this to take down omental adhesions. A Prestige grasper was introduced through the right lateral subcostal port grasping the fundus of the gallbladder, which was elevated cephalad. Omental adhesions were then dissected off the remainder of the gallbladder. A second Prestige grasper was introduced through the right medial subcostal port grasping the Gisel pouch, which was retracted laterally. The cystic duct was carefully dissected free from surrounding structures at the triangle of Calot. The duct was divided between clips applying 2 clips proximally and 1 clip at the junction of the cystic duct and gallbladder. Cystic artery was dissected free from surrounding structures and divided between clips in a similar fashion. Gallbladder itself was removed from the liver bed and passed off the operative field using an EndoCatch. Operative site was inspected and minor oozing in the gallbladder fossa was easily controlled using 1 x 2 inch piece of Fibrillar. Finding no other pathology, laparoscopy was terminated. Fascia of the epigastric port was closed using 0 Vicryl suture and Endoclosure device under laparoscopy. The abdomen was desufflated. All ports and instruments were removed and accounted for. Skin incision was closed using 4-0 Monocryl suture in a subcuticular fashion. Dermabond was applied over incisional closure. The patient tolerated the operation without any apparent complication and was returned to recovery room in satisfactory condition. Job ID: [id number]
== END 2019-04-14 17:50 | disposition home or self-care (01) ==
LOC: ERS 07:47
PROVIDERS: ATTEND Surgery
PROC: 0FT44ZZ Resection of Gallbladder, Percutaneous Endoscopic Approach (ICD-10-PCS; principal; 2019-04-14)
DX: K80.12 Calculus of gallbladder with acute and chronic cholecystitis without obstruction (principal); K66.0 Peritoneal adhesions (postprocedural) (postinfection); E11.9 Type 2 diabetes mellitus without complications; I10 Essential (primary) hypertension; K21.9 Gastro-esophageal reflux disease without esophagitis; M19.90 Unspecified osteoarthritis, unspecified site; Z79.84 Long term (current) use of oral hypoglycemic drugs; Z79.899 Other long term (current) drug therapy
CPT/HCPCS: 76705; 88304; 96374; J0131; J0694; J1885; J2001; J2405; J2704; J3010; J3490; Q9961

== ENCOUNTER 2019-04-16 11:53 | Emergency (ER) | payer MEDICARE ==
[2019-04-16] MEDS ORDERED: Morphine 4 MG/ML VIAL ONE ×2 (12:28→14:21)
[2019-04-16] MEDS ORDERED: Ondansetron PF 4 MG/2 ML Vial ONE (12:28)
[2019-04-16 12:56] LABS: #Eosinphils 0.1 thou/uL (0.0-0.7); #Lymphocytes 1.2 thou/uL (1.20-3.40); #Neutrophils 12.9 thou/uL (1.40-6.50); %Basophils 0.2 % (0.0-1.0); %Eosinophils 0.8 % (0.0-10.0); %Monocytes 6.3 % (0.0-10.0); %Neutrophils 84.7 % (42.0-75.0); Hemoglobin 12.6 g/dL (14.0-18.0); Mean Corpuscular HGB CONC 32.7 g/dL (32.0-36.0); Mean Corpuscular Hemoglobin 31.2 pg (27.0-31.0); Mean Corpuscular Volume 95.2 fL (78.0-98.0); Mean Platelet Volume 6.3 fL (7.4-10.4); Platelet Count 235 thou/uL (130-400); RBC Distribution Width 12.1 % (11.5-14.5); Red Blood Cell (RBC) Count 4.05 mill/uL (4.70-6.10); White Blood Cell (WBC) Count 15.2 thou/uL (4.8-10.8)
[2019-04-16 13:22] LABS: ALT (SGPT) 27 U/L (8-55); AST (SGOT) 20 U/L (5-34); Albumin 3.8 g/dL (3.4-4.8); Alkaline Phosphatase 61 U/L (40-150); Anion Gap 13 mmol/L (10-20); BUN (Urea Nitrogen) 7 mg/dL (8.4-25.7); Bilirubin, Total 0.8 mg/dL (0.2-1.2); Calc. Creatinine Clearance 0 mL/min (70-130); Calcium 9.4 mg/dL (7.8-10.44); Carbon Dioxide 25 mmol/L (23-31); Chloride 104 mmol/L (98-107); Estimated GFR-MDRD Greater than 90; Globulin 2.9 g/dL (2.4-3.5); Glucose 139 mg/dL (83-110); Potassium 3.8 mmol/L (3.5-5.1); Protein, Total 6.7 g/dL (5.8-8.1); Sodium 138 mmol/L (136-145)
[2019-04-16 13:35] LABS: Lipase Less than 32 U/L (8-78)
--- NOTE | 2019-04-16 13:56 | CT ---
CT abdomen with contrast CT pelvis with contrast: DATE: 04/16/2019 HISTORY: 73-year-old male with generalized abdominal pain and fever after cholecystectomy 2 days ago COMPARISON: 04/14/2019 TECHNIQUE: IV injection of iodinated contrast media:Administered Oral contrast media:Not administered FINDINGS: Large AxiaLIF screw from sacral body through L4 and L5. Bilateral pedicle screws at L4 and L5 with in terlocking metallic rods. Bilateral pedicle screws at L2 and L3. Gallbladder is now surgically absent. There is a collection of gas intermixed with fat stranding in t he gallbladder fossa, plus cholecystectomy clips. Subcutaneous emphysema involving a broad region in the superficial subcutaneous fat ventral to the anterior abdominal wall in the upper abdomen, on t he left and to a greater degree on the right. Deep to this, there are numerous tiny foci of superficial intraperitoneal free air. No consolidation or pleural effusion at lung bases. There is marquez bsegmental atelectasis at posterior base of right lower lobe probably abutting the posterior pleural surface. No hydronephrosis. Liver, abdominal aorta, adrenals, pancreas, and spleen, demonstra te no major pathology. Duodenal diverticulum at second stage of duodenum. No small bowel dilation. Numerous sigmoid colonic diverticula without diverticulitis. Distended but otherwise normal urinary b ladder. No fluid collection within the pelvic cavity or abdominal cavity. Noninflamed appendix. IMPRESSION: 1. Very recently status post cholecystectomy. 2. No unexpected findings, except that the subcutaneous emphysema is somewhat greater than typical.
== END 2019-04-16 14:40 | disposition home or self-care (01) ==
LOC: ERS 11:53
DX: R10.32 Left lower quadrant pain (principal); E11.9 Type 2 diabetes mellitus without complications; I10 Essential (primary) hypertension; Z79.899 Other long term (current) drug therapy; Z79.84 Long term (current) use of oral hypoglycemic drugs; Z98.890 Other specified postprocedural states
CPT/HCPCS: 74177; 80053; 83605; 83690; 85025; 96361; 96374; 96375; 96376; J2270; J2405; Q9966

== ENCOUNTER 2019-06-24 09:31 | Outpatient (CLI) | payer MEDICARE ==
--- NOTE | 2019-06-24 13:51 | MRI ---
MRI OF RIGHT SHOULDER PERFORMED WITHOUT CONTRAST ENHANCEMENT: HISTORY: Right shoulder pain, limited range of motion. FINDINGS: There is moderate arthrosis of the AC joint. Prominent bony hypertrophic change of the distal end of the clavicle with joint space narrowing. There is a complete supraspinatus tendon tear. The tendon is retracted by approximately 2.9 cm with AP dimension of the tear of approximately 2.4 cm. The infraspinatus tendon is intact. There may be some minimal involvement to some of the anteriormost fibers of the infraspinatus. The subscapularis muscle and tendon are intact. Biceps tendon is small, somewhat difficult to visual ize. I did not definitely see an intraarticular portion of biceps tendon. The superior labrum is tr uncated. There are arthritic changes of the glenohumeral joint space. There is some very mild atrophy of the supra- and infraspinatus as well as subscapularis muscles. Anterior glenohumeral ligament and ligamentous labral complex appear unremarkable. IMPRESSION: 1. Full-thickness supraspinatus tendon tear. 2. Apparent tear of the biceps tendon. I cannot identify an intraarticular portion of the biceps te ndon and the superior labrum at the level of the biceps anchor is truncated. POS: C
== END 2019-06-24 09:32 | disposition home or self-care (01) ==
LOC: BICMRI 09:31
PROVIDERS: ATTEND Orthopaedic Surgery
DX: M75.41 Impingement syndrome of right shoulder (principal); S46.211A Strain of muscle, fascia and tendon of other parts of biceps, right arm, initial encounter; M75.121 Complete rotator cuff tear or rupture of right shoulder, not specified as traumatic

== ENCOUNTER 2019-08-15 10:13 | Outpatient (CLI) | payer MEDICARE ==
[2019-08-15 10:33] LABS: Estimated GFR-MDRD - POC Greater than 90
[2019-08-15] MEDS ORDERED: ISOVUE-370 76%-LOCM 1 ML ONE (13:13)
--- NOTE | 2019-08-15 14:17 | CT ---
CT OF CHEST PERFORMED WITH INTRAVENOUS CONTRAST ENHANCEMENT: HISTORY: Followup of pulmonary nodule. COMPARISON: 02/15/2019 exam. FINDINGS: Thyroid gland is prominent with a suggestion of small nodules which would be better assessed with ult rasound. There are slightly prominent mediastinal nodes. These are not enlarged but are slightly mo re numerous than typically seen with some small prevascular and pretracheal nodes noted. There is mo derate coronary calcification seen. The ascending aorta measures approximately 4.2 cm. The predominantly interstitial lung opacities in both upper lobes which have small areas of nodularit y are fairly similar to the previous exam. There is now more confluent infiltrative or atelectatic c hange in the right lower lobe. There are more prominent parenchymal changes In the more medial aspect of the right lower lobe but also some areas of ground-glass nodularity. Th is would suggest more of an acute pneumonitis. Distribution of this would suggest perhaps an atypica l infection. Changes are also seen in the lingula and right middle lobes stable. IMPRESSION: 1. Mainly interstitial opacities within the upper lobes, lingula, and right middle lobe, all relativ shen stable with worsening parenchymal changes of the right lower lobe suggesting a more acute infiltr ative process. Distribution of this would suggest the possibility of an atypical-type infection. 2. Marked coronary artery calcifications. 3. Postop cholecystectomy change. POS: OFF
== END 2019-08-15 10:14 | disposition home or self-care (01) ==
LOC: BICCT 10:13
PROVIDERS: ATTEND Internal Medicine Critical Care Medicine
DX: R91.1 Solitary pulmonary nodule (principal); R91.8 Other nonspecific abnormal finding of lung field; Z90.49 Acquired absence of other specified parts of digestive tract; I25.10 Atherosclerotic heart disease of native coronary artery without angina pectoris
CPT/HCPCS: 71260; 82565; Q9966

== ENCOUNTER 2019-09-15 14:33 | Outpatient (CLI) | payer MEDICARE ==
--- NOTE | 2019-09-15 14:51 | RAD ---
EXAM: Chest 2 views: HISTORY: Dyspnea COMPARISON: None. FINDINGS: There is a normal-sized cardiomediastinal silhouette. There is no evidence of consolidation, mass, or pleural effusion. The bones are unremarkable. IMPRESSION: No evidence of acute cardiopulmonary disease
== END 2019-09-15 14:34 | disposition home or self-care (01) ==
LOC: RAD 14:33
PROVIDERS: ATTEND Internal Medicine Critical Care Medicine
DX: R06.00 Dyspnea, unspecified (principal)
CPT/HCPCS: 71046

== ENCOUNTER 2020-01-26 15:23 | Outpatient (CLI) | payer MEDICARE ==
--- NOTE | 2020-01-26 16:46 | MRI ---
MRI Thoracic Spine WO Con History: Radicular pain of thoracic region Comparison: None. Findings: The aortic contour is nonaneurysmal. No posterior mediastinal adenopathy. No marrow infiltrative process. Intraosseous hemangioma of T4. Intraosseous hemangioma of T11. Mild reverse S-shaped scoliosis of thoracic spine. Moderate degenerative disease of the sternoclavicular joints bilaterally. Levels are as follows: T1/T2: Small disc bulge. Minimal effacement of the ventral CSF space with the spinal canal measuring approximately 1 cm. Mild left neural foraminal narrowing. T2/T3: Minimal disc desiccation. Minimal hypertrophic facet arthrosis. No neural foraminal or spinal canal narrowing. Small disc bulge. T3/T4: Small central disc osteophyte complex. Minimal effacement of ventral CSF space. Spinal canal m easures approximately 11 mm. No significant neural foraminal narrowing. T4/T5: Mild disc desiccation. Mild facet arthrosis. No neural foraminal or spinal canal narrowing. T5/T6: Mild disc desiccation. Mild facet arthrosis. No neural foraminal or spinal canal narrowing. T6/T7: Mild facet arthrosis. No neural foraminal or spinal canal narrowing. T7/T8: Moderate degenerative disc space height loss. Small disc bulge. Mild bilateral neural foramina l narrowing. T8/T9: Mild disc desiccation. No neural foraminal or spinal canal narrowing. Mild facet arthrosis. T9/T10: Mild disc desiccation. Small disc bulge. Mild hypertrophic facet arthrosis. Moderate left and mild right neural foraminal narrowing. T10/T11: Mild disc desiccation. Small disc bulge. Mild hypertrophic facet arthrosis. Mild to moderate ligamentum flavum hypertrophy. Spinal canal measures approximately 1 cm. Moderate to severe right and moderate left neural foraminal narrowing. T11/T12: High-grade facet arthrosis. Small circumferential disc osteophyte complex. Moderate to sever e bilateral neural foraminal narrowing. Impression: Multilevel spondylosis as described with neural foraminal and spinal canal narrowing. Transcribed Date/Time: 01/26/2020 4:50 PM
== END 2020-01-26 15:24 | disposition home or self-care (01) ==
LOC: BICMRI 15:23
PROVIDERS: ATTEND Nurse Practitioner Family
DX: M47.24 Other spondylosis with radiculopathy, thoracic region (principal); M48.04 Spinal stenosis, thoracic region
CPT/HCPCS: 72146

== ENCOUNTER 2020-06-12 11:58 | Outpatient (CLI) | payer MEDICARE ==
--- NOTE | 2020-06-12 12:15 | RAD ---
EXAM: Chest 2 views: HISTORY: Dyspnea COMPARISON: 01/28/2015 FINDINGS: There is a normal-sized cardiomediastinal silhouette. There is no evidence of consolidation, mass, or pleural effusion. The bones are unremarkable. IMPRESSION: No evidence of acute cardiopulmonary disease
== END 2020-06-12 11:59 | disposition home or self-care (01) ==
LOC: BICRAD 11:58
PROVIDERS: ATTEND Internal Medicine Critical Care Medicine
DX: R06.00 Dyspnea, unspecified (principal)
CPT/HCPCS: 71046

== ENCOUNTER 2020-09-27 15:06 | Outpatient (CLI) | payer MEDICARE ==
--- NOTE | 2020-09-28 08:56 | MRI ---
EXAM: MRI Cervical Spine WO Con PROVIDED CLINICAL HISTORY: Cervical radiculopathy COMPARISON: None FINDINGS: There is postoperative or congenital fusion of the C6 and C7 vertebral bodies and both facet joints. Vertebral body heights appear preserved. Slight anterolisthesis of C3 on C4. Cervical alignment appears otherwise normal. The visualized posterior fossa, cervicomedullary junction and cervical spin al cord demonstrate normal signal and morphology. At C2-3, there is advanced left facet arthrosis with moderate left foraminal narrowing. There is no s ignificant central canal or right foraminal narrowing apparent. At C3-4, there is advanced bilateral facet arthrosis and mild bilateral uncinate process hypertrophy. There is a broad disc osteophyte complex. There is mild bilateral foraminal narrowing. No significant central canal stenosis apparent. At C4-5, there is mild disc space height loss and a broad-based disc osteophyte complex. Bilateral un cinate process hypertrophy and bilateral facet arthritis. Moderate left and moderate-severe right foraminal narrowing. Effacement of the ventral subarachnoid space particularly left of midline, appro ximating the left ventral hemicord laterally. At C5-6, there is conspicuous disc space height loss and endplate degenerative change. There is a bro ad-based disc osteophyte complex and bilateral uncinate process hypertrophy. There is severe bilateral foraminal narrowing. There is effacement of ventral subarachnoid space with flattening of t he spinal cord particularly right of midline. Bilateral facet arthrosis. At C6-7, there is no significant central canal or foraminal narrowing apparent. At C7-T1, there is a broad-based disc bulge and bilateral uncinate process hypertrophy. Advanced bila teral facet arthrosis. Severe left and mild right foraminal narrowing. No significant central canal stenosis apparent. IMPRESSION: Advanced cervical degenerative changes, producing canal and foraminal narrowing as described.
== END 2020-09-27 15:07 | disposition home or self-care (01) ==
LOC: BICMRI 15:06
PROVIDERS: ATTEND Anesthesiology Pain Medicine
DX: M47.22 Other spondylosis with radiculopathy, cervical region (principal); M47.813 Spondylosis without myelopathy or radiculopathy, cervicothoracic region; M48.02 Spinal stenosis, cervical region; M48.03 Spinal stenosis, cervicothoracic region
CPT/HCPCS: 72141

== ENCOUNTER 2021-03-06 14:21 | Outpatient (CLI) | payer MEDICARE | END 2021-03-06 14:22 | disposition home or self-care (01) | LOC: BICCT 14:21 | PROVIDERS: ATTEND Anesthesiology Pain Medicine | DX: M48.061 Spinal stenosis, lumbar region without neurogenic claudication (principal); M47.816 Spondylosis without myelopathy or radiculopathy, lumbar region; M47.817 Spondylosis without myelopathy or radiculopathy, lumbosacral region; M47.815 Spondylosis without myelopathy or radiculopathy, thoracolumbar region; M47.814 Spondylosis without myelopathy or radiculopathy, thoracic region; Z98.890 Other specified postprocedural states | CPT/HCPCS: 72131 ==